=== PATIENT | female | born 1935 | race Caucasian/White ===

== ENCOUNTER → 2016-10-14 | Outpatient (CLI) | payer BC ==
[2016-10-14 11:17] LABS: ESTIMATED AVERAGE GLUCOSE 134 mg/dl; HA1C FLAG Normal (Normal)
[2016-10-14 11:30] LABS: ALT/SGPT 36 U/L (12-78); AST/SGOT 24 U/L (15-37); BLOOD UREA NITROGEN 13 mg/dl (7-18); BUN/CREATININE RATIO 16.4 (10-20); CALCIUM 9.1 mg/dl (8.5-10.1); CARBON DIOXIDE 29 mmol/L (21-32); CHLORIDE 109 mmol/L (98-107); CREATININE 0.77 mg/dl (0.60-1.20); GLUCOSE 121 mg/dl (70-99); POTASSIUM 4.7 mmol/L (3.5-5.1); SODIUM 143 mmol/L (136-145)
[2016-10-14 11:40] LABS: CHOLESTEROL 189 mg/dl (0-200); CHOLESTEROL/HDL RATIO 3.6; HDL CHOLESTEROL 53 mg/dl; LDL CHOLESTEROL CALCULATED 105 mg/dl; TRIGLYCERIDES 154 mg/dl (0-150); VERY LOW DENSITY LIPOPROT CALC 31 mg/dl
== END | disposition home or self-care (01) ==
LOC: C.LABBC 07:40
PROVIDERS: ATTEND Internal Medicine
DX: E03.9 Hypothyroidism, unspecified (principal); E78.00 Pure hypercholesterolemia, unspecified; R73.03 Prediabetes

== ENCOUNTER → 2017-04-23 | Outpatient (CLI) | payer BC ==
[2017-04-23 14:05] LABS: ALT/SGPT 34 U/L (12-78); AST/SGOT 22 U/L (15-37); BLOOD UREA NITROGEN 19 mg/dl (7-18); BUN/CREATININE RATIO 27.1 (10-20); CALCIUM 8.7 mg/dl (8.5-10.1); CARBON DIOXIDE 27 mmol/L (21-32); CHLORIDE 109 mmol/L (98-107); CHOLESTEROL 175 mg/dl (0-200); CREATININE 0.69 mg/dl (0.60-1.20); GLUCOSE 112 mg/dl (70-99); SODIUM 140 mmol/L (136-145)
[2017-04-23 14:16] LABS: CHOLESTEROL/HDL RATIO 2.7; HDL CHOLESTEROL 64 mg/dl; LDL CHOLESTEROL CALCULATED 92 mg/dl; TRIGLYCERIDES 96 mg/dl (0-150); VERY LOW DENSITY LIPOPROT CALC 19 mg/dl
[2017-04-24 06:38] LABS: ESTIMATED AVERAGE GLUCOSE 128 mg/dl; HA1C FLAG Normal (Normal)
== END | disposition home or self-care (01) ==
LOC: C.LABBC 09:31
PROVIDERS: ATTEND Internal Medicine
DX: R73.03 Prediabetes (principal); E03.9 Hypothyroidism, unspecified; E78.00 Pure hypercholesterolemia, unspecified

== ENCOUNTER 2024-09-15 12:21 | Inpatient (IN) ==
--- NOTE | 2024-09-15 12:30 | Emergency Department Note ---
Impression & Plan Left trimalleolar fracture, Short-term memory loss, Ambulatory dysfunction ED Provider Note NAME: ANDREW YEE AGE: 89 SEX: F : 1935 ARRIVES VIA: Ambulance INFORMANT: Patient ED PROVIDER(S): Chase Tirado DO CHIEF COMPLAINT: Fall HPI: Patient is an 89-year-old female with a past medical history of CVA, short- term memory loss, prediabetes who presents to the ER following a fall per report from EMS as described by . Patient fell down from standing. She allegedly did not hit her head. This occurred 2 days ago. She had been cleaning of left ankle and foot pain. She has not been walking on it. No tingling or numbness. She denies any chest pain or shortness of breath. No exertional symptoms. ADDITIONAL HISTORY OBTAINED: notes that he did not see the fall but notes that she kind of fell onto her leg. He also notes that she chronically has issues with memory. Chronic Medical/Social Conditions Affecting Care: Per HPI PAST MEDICAL HISTORY:See Below PAST SURGICAL HISTORY:See Below FAMILY HISTORY:See Below SOCIAL HISTORY:See Below HOME MEDICATIONS:See Below ALLERGIES:See Below VITALS:See Below PHYSICAL EXAMINATION: GENERAL: alert, well appearing, well nourished, no distress, non-toxic HEAD: normal cephalic, atraumatic EYE EXAM: normal conjunctiva, PERRL and EOM's grossly intact OROPHARYNX: no exudate, no erythema, lips, buccal mucosa, and tongue normal and mucous membranes are moist NECK: supple, no nuchal rigidity, no adenopathy, non-tender CHEST: stable to compression anteriorly and posteriorly LUNGS: clear to auscultation. Normal chest wall mechanics HEART: no murmurs, S1 normal and S2 normal ABDOMEN: abdomen soft, non-tender, normo-active bowel sounds, no masses, no rebound or guarding. PELVIS: stable to compression anteriorly and posteriorly BACK: Back is symmetrical on inspection and there is no deformity, no midline tenderness, no CVA tenderness. UPPER EXTREMITIES: full active and passive range of motion of all joints without tenderness to palpation LOWER EXTREMITIES: No tenderness in left femur, knee or proximal tib-fib. Bruising and swelling over the mid to distal tib-fib most prominent over the medial malleolus tracking through the foot. DP and PT 2 out of 4. Swelling of the foot. Sensation intact NEURO EXAM: Awake alert oriented to person and place but not year, cranial nerves II-XII grossly intact, normal speech, no gross weakness of arms, no gross weakness of legs. GCS: 15. MEDICAL DECISION MAKING: Patient is an 89-year-old female who presents to the ER following a fall 2 days ago. She does not remember it. IV was established and blood work was obtained. Labs show no significant leukocytosis or anemia. BMP with a slightly elevated chloride at 109. LFTs and bilirubin was unremarkable. X-rays of the ankle show trimalleolar fracture. Patient has been unable to get out of bed for the past 2 days. She was updated at bedside. Discussed with the who was present at bedside as well. She was discussed with the hospitalist. Did page orthopedics but never heard back. She was admitted to the hospitalist. She was given IV morphine and Zofran as well while in the ER. Consults/Care Managements Discussions: Per [facility] Triage Nursing notes reviewed. Limited review of prior medical records performed Vital Signs: reviewed and remarkable for no significant abnormalities Differential diagnosis: Differential diagnoses include major intracranial, cervical, spinal, thoracic, abdominal, pelvic and neurologic injury. Fracture, contusion, sprain, strain, laceration, abrasions included as well. ER treatment provided: See below Diagnostics interpreted by me include EKG and cardiac monitoring as listed below: -Cardiac Monitoring: An order was placed for continuous cardiac monitoring. The monitor shows a rate of 70 with sinus rhythm. -ECG: Sinus rhythm rate 68 Normal axis No PVCs T wave inversions in the high lateral leads as well as V2 through V6 QTc 489 No old to compare to -Laboratory studies:Interpreted by me as stated above in MDM and shown below. Imaging studies: Xrays: As interpreted by me: X-ray of the left ankle shows a trimalar fracture X-ray of the tib-fib shows fractures in the ankle CTs show: none Procedures:none Critical Care: None Past Med/Surg History Problem List (Updated 09/15/24 @ 17:58 by Chase Tirado DO) Ambulatory dysfunction (Acute) Left trimalleolar fracture (Acute) Late effects of cerebrovascular disease Short-term memory loss (Acute) Pre-diabetes (Acute) Hypercholesterolemia (Acute) Hypothyroidism (Acute) Laryngopharyngeal reflux (Acute) Osteoporosis (Acute) Medical History Central retinal vein occlusion Lupus anticoagulant disorder Vocal cord polyp Surgical History S/P hysterectomy Family History Denies family history of Colon cancer Ovarian cancer Prostate cancer Myocardial infarction Breast cancer Social History Smoking Status: Never smoker Second Hand Exposure: No; Do You Dip or Chew Tobacco: No; Hx Alcohol Use: No Hx Substance Use: No Preferred Language: Cuban Communication Ability: Effective Hearing Ability: Normal Quality Process Lead Required: No marital status: Current Living Situation: Spouse current occupational status: retired How many Children do You have: 1 Feels Safe at Home: Yes Childhood Exposure to Second-Hand Smoke: No Diet: regular caffeine: No during the past year weight has: remained stable Dental Care, Regularly: Yes Physical Activity Frequency: Does not Exercise Seatbelt Use: always Sunscreen Use: Yes Allergies Allergies Allergy/AdvReac Type Severity Reaction Status Date / Time No Known Allergies Allergy Verified 09/15/24 13:55 Home Meds Previous Rx's Medication Instructions Recorded Synthroid 75 mcg tablet 75 mcg PO DAILY #90 tabs 09/09/23 (levothyroxine) clopidogrel 75 mg tablet 75 mg PO DAILY #90 tabs 09/09/23 atorvastatin 20 mg tablet 20 mg PO DAILY #90 tabs 09/05/24 Results & Data (ED) Vital Signs Vital Signs - 24 hr 09/15/24 12:39 09/15/24 12:39 09/15/24 12:45 Temperature 36.6 C Temperature Source Oral Pulse Rate 68 69 Pulse Rhythm Regular Respiratory Rate 20 18 Respiratory Effort / Characteristics Non-Labored Non-Labored Respiratory Depth Normal Normal Blood Pressure 142/62 H Blood Pressure Mean 88 Pulse Oximetry 97 95 Oxygen Delivery Method Room Air Room Air Sepsis Recent Fever Within 48 Hours No Sepsis New/Unexplained Change in Mental Status No Sepsis Action Taken by Nursing No Action Required 09/15/24 13:02 Temperature Temperature Source Pulse Rate 66 Pulse Rhythm Respiratory Rate Respiratory Effort / Characteristics Respiratory Depth Blood Pressure Blood Pressure Mean Pulse Oximetry Oxygen Delivery Method Sepsis Recent Fever Within 48 Hours Sepsis New/Unexplained Change in Mental Status Sepsis Action Taken by Nursing Laboratory Data 09/15/24 12:30 09/15/24 12:30 Lab Results 09/15/24 Range/Units 12:30 WBC 7.54 (4.8-10.8) K/ul RBC 3.97 L (4.20-5.40) M/uL Hgb 12.7 (12.0-16.0) g/dl Hct 36.4 L (37.0-47.0) % MCV 91.7 (80.0-100.0) fL MCH 32.0 (25.0-34.0) pg MCHC 34.9 (32.0-36.0) g/dL RDW Std Deviation 40.4 (36.4-46.3) fL RDW Coeff of [place] 12.0 (11.5-14.5) % Plt Count 190 (130-400) K/uL MPV 9.4 (9.4-12.4) fL Immature Gran % (Auto) 0.1 % Neut % (Auto) 69.3 % Lymph % (Auto) 22.1 % [place] % (Auto) 7.3 % Eos % (Auto) 0.8 % Baso % (Auto) 0.4 % Neut # (Auto) 5.22 (1.40-6.50) K/uL Lymph # (Auto) 1.67 (1.20-3.40) K/uL [place] # (Auto) 0.55 (0.11-0.59) K/uL Eos # (Auto) 0.06 (0.00-0.50) K/uL Baso # (Auto) 0.03 (0.00-0.20) K/uL Immature Gran # (Auto) 0.01 (0.01-0.20) K/uL Sodium 141 (136-145) mmol/L Potassium 4.0 (3.5-5.1) mmol/L Chloride 109 H (98-107) mmol/L Carbon Dioxide 27 (21-32) mmol/L Anion Gap 5 (3-11) BUN 21 (6-23) mg/dl Creatinine 0.71 (0.6-1.2) mg/dl Est Cr Clr Drug Dosing 42.5 ml/min eGFR 81.22 BUN/Creatinine Ratio 29.6 H (10-20) Glucose 140 H (70-99(Fasting)) mg/dl Calcium 8.8 (8.6-10.3) mg/dl Total Bilirubin 1.3 H (0.2-1.0) mg/dl AST 22 (13-39) U/L ALT 12 (7-52) U/L Alkaline Phosphatase 75 (34-104) U/L Total Protein 5.9 L (6.0-8.3) gm/dl Albumin 3.8 (3.4-5.0) gm/dl Globulin 2.1 L (2.5-4.0) gm/dl Albumin/Globulin Ratio 1.8 (0.9-2) Administered Medications Acetaminophen (Ofirmev) 1,000 mg in 100 mls @ 400 mls/hr IV Q8H MARÍA Stop: 09/18/24 16:46 Last Admin: 09/15/24 17:47 Dose: 400 mls/hr Documented By: BS Discontinued Medications Morphine Sulfate (Morphine Sulfate 2 Mg/Ml Carp) 2 mg IV NOW STA Stop: 09/15/24 13:16 Last Admin: 09/15/24 14:37 Dose: 2 mg Documented By: MARQUIS Ondansetron HCl (Ondansetron Inj 2 Mg/Ml 2 Ml Vial) 4 mg IV NOW STA Stop: 09/15/24 13:16 Last Admin: 09/15/24 14:36 Dose: 4 mg Documented By: MARQUIS Imaging Data Radiologist's Impression: Ankle X-Ray 09/15/24 12:23 XR ankle LT min 3V routine CLINICAL HISTORY: Left ankle pain. COMPARISON: None FINDINGS: Left ankle soft tissue swelling is present. There is an acute oblique mildly displaced distal left fibular fracture. Fracture is displaced 4 mm. Fracture extends from the level the tibiotalar joint 3 cm proximally. There is also an acute mildly displaced fracture of the medial malleolus. There is mild medial ankle mortise widening on oblique projection. There is a probable acute mildly displaced posterior distal left tibial fracture. A lucency within the posterior calcaneus is likely artifactual. IMPRESSION: 1. Acute mildly displaced left ankle trimalleolar fracture, as described above. Mild medial ankle mortise widening. 2. Left ankle soft tissue swelling. ACT 112: Negative or not required by law. Electronically signed by: Collin Sweeney M.D. 09/15/2024 1:00 PM Foot X-Ray 09/15/24 12:23 XR foot LT min 3V routine HISTORY: 89 years-old Female l foot pain acute left foot pain COMPARISON: Ankle, tibia and fibula radiographs of same day TECHNIQUE: 3 views of the left foot FINDINGS: Moderate soft tissue swelling of the foot and ankle. Acute trimalleolar ankle fracture with displacement. Demineralized appearance of the bone. No additional acute fracture or dislocation identified. Midfoot alignment appears anatomic. IMPRESSION: 1. Soft tissue swelling of the foot without acute fracture or dislocation. 2. Acute trimalleolar fractures of the ankle are better seen and described on the same day ankle films. ACT 112: Negative or not required by law. The above report was generated using voice recognition software. It may contain grammatical, syntax or spelling errors. Electronically signed by: Gurjit Morley M.D. 09/15/2024 12:50 PM Tibia/Fibula X-Ray 09/15/24 12:23 XR tibia fibula LT 2V CLINICAL HISTORY: Left leg pain. COMPARISON: None FINDINGS: No proximal left tibial or fibular fractures are identified. There is an acute mildly displaced fracture the medial malleolus, distal left fibula and probable additional acute fracture of the posterior distal left tibia. There is left ankle soft tissue swelling. Mild medial ankle mortise widening is present. IMPRESSION: 1. Acute mildly displaced left ankle trimalleolar fracture. Mild medial ankle mortise widening. 2. No proximal left tibial or fibular fracture. ACT 112: Negative or not required by law. Electronically signed by: Collin Sweeney M.D. 09/15/2024 1:02 PM Discharge Plan Visit Data Chief Complaint: Ankle Pain Stated Complaint: FALL ED Provider: Chase Tirado Discharge Problem: Left trimalleolar fracture, Short-term memory loss, Ambulatory dysfunction Patient Disposition: Admitted As Inpatient Condition: Fair Discharge Instructions Interventions: ED Discharge Assessment Last Done: 09/15/24 16:48 Discharge Problem: Left trimalleolar fracture Qualifiers: Encounter type: initial encounter Fracture type: closed Qualified Code(s): S 82.852A - Displaced trimalleolar fracture of left lower leg, initial encounter for closed fracture
[2024-09-15 12:48] LABS: Basophils # (auto) 0.03 K/uL (0.00-0.20); Basophils % (auto) 0.4 %; Eosinophils # (auto) 0.06 K/uL (0.00-0.50); Eosinophils % (auto) 0.8 %; Hematocrit (blood only) 36.4 % (37.0-47.0); Hemoglobin 12.7 g/dl (12.0-16.0); Immature Granulocytes # (auto) 0.01 K/uL (0.01-0.20); Immature Granulocytes % (auto) 0.1 %; Lymphocytes # (auto) 1.67 K/uL (1.20-3.40); Lymphocytes % (auto) 22.1 %; Mean Corpuscular Hgb Conc 34.9 g/dL (32.0-36.0); Mean Corpuscular Volume 91.7 fL (80.0-100.0); Mean Platelet Volume 9.4 fL (9.4-12.4); Monocytes # (auto) 0.55 K/uL (0.11-0.59); Monocytes % (auto) 7.3 %; Neutrophils # (auto) 5.22 K/uL (1.40-6.50); Neutrophils % (auto) 69.3 %; Platelet Count 190 K/uL (130-400); RDW Standard Deviation 40.4 fL (36.4-46.3); Red Blood Count 3.97 M/uL (4.20-5.40); White Blood Count 7.54 K/ul (4.8-10.8)
--- NOTE | 2024-09-15 12:52 | XRay Report ---
XR foot LT min 3V routine HISTORY: 89 years-old Female l foot pain acute left foot pain COMPARISON: Ankle, tibia and fibula radiographs of same day TECHNIQUE: 3 views of the left foot FINDINGS: Moderate soft tissue swelling of the foot and ankle. Acute trimalleolar ankle fracture with displacem ent. Demineralized appearance of the bone. No additional acute fracture or dislocation identified. Mi dfoot alignment appears anatomic. IMPRESSION: 1. Soft tissue swelling of the foot without acute fracture or dislocation. 2. Acute trimalleolar fractures of the ankle are better seen and described on the same day ankle film s. ACT 112: Negative or not required by law. The above report was generated using voice recognition software. It may contain grammatical, syntax o r spelling errors. Electronically signed by: Gurjit Morley M.D. 09/15/2024 12:50 PM
--- NOTE | 2024-09-15 13:02 | XRay Report ---
XR ankle LT min 3V routine CLINICAL HISTORY: Left ankle pain. COMPARISON: None FINDINGS: Left ankle soft tissue swelling is present. There is an acute oblique mildly displaced dis jung left fibular fracture. Fracture is displaced 4 mm. Fracture extends from the level the tibiotalar joint 3 cm proximally. There is also an acute mildly displaced fracture of the medial malleolus. The re is mild medial ankle mortise widening on oblique projection. There is a probable acute mildly disp laced posterior distal left tibial fracture. A lucency within the posterior calcaneus is likely artif actual. IMPRESSION: 1. Acute mildly displaced left ankle trimalleolar fracture, as described above. Mild medial ankle mor tise widening. 2. Left ankle soft tissue swelling. ACT 112: Negative or not required by law. Electronically signed by: Collin Sweeney M.D. 09/15/2024 1:00 PM
--- NOTE | 2024-09-15 13:04 | XRay Report ---
XR tibia fibula LT 2V CLINICAL HISTORY: Left leg pain. COMPARISON: None FINDINGS: No proximal left tibial or fibular fractures are identified. There is an acute mildly disp laced fracture the medial malleolus, distal left fibula and probable additional acute fracture of the posterior distal left tibia. There is left ankle soft tissue swelling. Mild medial ankle mortise wid ening is present. IMPRESSION: 1. Acute mildly displaced left ankle trimalleolar fracture. Mild medial ankle mortise widening. 2. No proximal left tibial or fibular fracture. ACT 112: Negative or not required by law. Electronically signed by: Collin Sweeney M.D. 09/15/2024 1:02 PM
[2024-09-15 13:05] LABS: Albumin Globulin Ratio 1.8 (0.9-2); Albumin Level 3.8 gm/dl (3.4-5.0); BUN Creatinine Ratio 29.6 (10-20); Bilirubin,Total 1.3 mg/dl (0.2-1.0); Calcium 8.8 mg/dl (8.6-10.3); Creatinine Clr Calc Pharmacy 42.5 ml/min; Globulin 2.1 gm/dl (2.5-4.0); Total Protein 5.9 gm/dl (6.0-8.3)
--- NOTE | 2024-09-15 14:10 | History & Physical Report ---
Date of Service September 15, 2024 Assessment & Plan (1) Left trimalleolar fracture: (2) Osteoporosis: (3) Hypothyroidism: (4) Pre-diabetes: (5) Hypercholesterolemia: (6) Laryngopharyngeal reflux: (7) Short-term memory loss: Plan 89-year-old female with past medical history of hypothyroidism, hypercholesterolemia, osteoporosis, prediabetes, prior CVA (on Plavix), GERD, vitamin D deficiency, and short-term memory loss. She presented to the ED via EMS with left ankle pain after experiencing a fall at home 2 days prior to presenting to the ED. She denied head strike or loss of consciousness during this fall. She has had ongoing left foot/ankle pain since the fall and has not been able to ambulate due to pain with weightbearing. Imaging on admission revealed acute mildly displaced left ankle trimalleolar fracture - fracture the medial malleolus, distal left fibula and probable additional acute fracture of the posterior distal left tibia. There is left ankle soft tissue swelling. Mild medial ankle mortise widening is present. No proximal left tibial or fibular fracture noted. #Acute left trimalleolar ankle fracture/osteoporosis/vitamin D deficiency Apply Orthoglass splint to LLE Orthopedic surgery consulted, appreciate evaluation and recommendations Pain regimen with scheduled Tylenol 1000 mg IV Q8H, oxycodone 5 mg Q4H PRN moderate pain, morphine 2 mg IV Q4H PRN severe pain Continue vitamin D supplementation. Vitamin D level added to a.m. labs PT/OT consulted - will make non-weightbearing status for LLE until seen by ortho Maintain n.p.o. status with pending orthopedic surgery evaluation. If no surgical intervention is planned for today 09/15/2024, can start regular diet. If surgical interventions planned for 09/16, make n.p.o. at midnight #Hypothyroidism Most recent TSH 2.5 in February 2024 Continue Synthroid 75 mcg daily #Prediabetes Most recent A1c 6.1% in February 2024 Will repeat A1c with morning labs #Hypercholesterolemia Continue atorvastatin 20 mg daily #GERD Protonix 40 mg daily while hospitalized Maalox available as needed #Short-term memory loss from prior CVA. Mentation at baseline per Plavix, Aspirin on hold with pending surgical intervention VTE PPx: SCDs. Chemoprophylaxis contraindicated with possible surgical intervention CODE STATUS: DNR/DNI History of Present Illness Chief Complaint: Left ankle pain Primary Care Provider: Edgar Rodriguez MD Demetra is a pleasant 89-year-old female with past medical history of hypothyroidism, hypercholesterolemia, osteoporosis, prediabetes, prior CVA (on Plavix and baby Aspirin), GERD, vitamin D deficiency, and short-term memory loss. She presented to the ED via EMS with left ankle pain after experiencing a fall at home 2 days prior to presenting to the ED. She denied head strike or loss of consciousness during this fall. She has had ongoing left foot/ankle pain since the fall and has not been able to ambulate due to pain with weightbearing. She denies any paresthesias in her right lower extremity. Her pain is well-controlled at this time after receiving 2 mg IV morphine in the ED. Vital signs on admission notes slightly elevated BP at 142/62, otherwise within normal limits and stable. Labs on admission overall unremarkable with stable WBC, hemoglobin, platelets, electrolytes. Serum glucose elevated at 140, T. bili slightly elevated at 1.3. Imaging on admission revealed acute mildly displaced left ankle trimalleolar fracture - fracture the medial malleolus, distal left fibula and probable additional acute fracture of the posterior distal left tibia. There is left ankle soft tissue swelling. Mild medial ankle mortise widening is present. No proximal left tibial or fibular fracture noted. She did not take any medications on day of admission. does report she takes aspirin 81 mg daily (not included on med list). No recent medication changes. at bedside to provide additional history as patient has some short-term memory loss at baseline. Discussed CODE STATUS with patient and , patient wishes to be DNR/DNI. Allergies Allergy/AdvReac Type Severity Reaction Status Date / Time No Known Allergies Allergy Verified 09/15/24 13:55 Home Medications Medication Instructions Recorded Confirmed Type Synthroid 75 mcg tablet 75 mcg PO DAILY #90 tabs 09/09/23 09/15/24 Rx (levothyroxine) clopidogrel 75 mg tablet 75 mg PO DAILY #90 tabs 09/09/23 09/15/24 Rx atorvastatin 20 mg tablet 20 mg PO DAILY #90 tabs 09/05/24 09/15/24 Rx Past Med/Surg History Problem List (Updated 09/15/24 @ 17:58 by Chase M Tirado, DO) Ambulatory dysfunction (Acute) Left trimalleolar fracture (Acute) Late effects of cerebrovascular disease Short-term memory loss (Acute) Pre-diabetes (Acute) Hypercholesterolemia (Acute) Hypothyroidism (Acute) Laryngopharyngeal reflux (Acute) Osteoporosis (Acute) Medical History Central retinal vein occlusion Lupus anticoagulant disorder Vocal cord polyp Surgical History S/P hysterectomy Family History Denies family history of Colon cancer Ovarian cancer Prostate cancer Myocardial infarction Breast cancer Social History Smoking Status: Never smoker Second Hand Exposure: No; Do You Dip or Chew Tobacco: No; Hx Alcohol Use: No Hx Substance Use: No Preferred Language: Belarusian Communication Ability: Effective Hearing Ability: Normal 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 HEENT: Normocephalic, atraumatic. PERRL, conjunctivae clear, sclera non-icte shikha. External ear and ear canal without swelling; nose atraumatic; good dentition, tongue normal appearance, pharynx normal. Neck supple, no LAD. Cardiac: Regular rate and rhythm without murmurs gallops or rubs. Pulm: Clear to auscultation bilaterally without wheezes, rales or rhonchi. Normal respiratory effort. 97% on room air. Abdominal: Positive bowel sounds x 4. Soft, nontender, without masses or organomegaly. No guarding or rebound tenderness. Neuro: A&O x3 (person, place, event - not time/month). Periods of short term memory loss. Baseline mentation per . No focal neurological deficits. Left lower extremity: Ecchymosis extending from middistal tib-fib through midfoot. Soft tissue swelling noted in ankle and foot. Tenderness over medial malleolus. Dorsalis pedis 2/4. Sensation intact to light touch. ROM limited by pain. Results & Data Results & Data Vital Signs (Past 12 Hours) Vital Signs Temp Pulse Resp BP Pulse Ox O2 Del Method 09/15/24 13:02 66 09/15/24 12:39 69 18 95 Room Air 09/15/24 12:39 97.9 F 68 20 142/62 H 97 Room Air Laboratory Results Reviewed CBC Reviewed CMP Diagnostic Findings Reviewed left ankle x-ray Reviewed left foot x-ray Reviewed left tibia/fibula x-ray Ankle X-Ray 09/15/24 12:23 XR ankle LT min 3V routine CLINICAL HISTORY: Left ankle pain. COMPARISON: None FINDINGS: Left ankle soft tissue swelling is present. There is an acute oblique mildly displaced distal left fibular fracture. Fracture is displaced 4 mm. Fracture extends from the level the tibiotalar joint 3 cm proximally. There is also an acute mildly displaced fracture of the medial malleolus. There is mild medial ankle mortise widening on oblique projection. There is a probable acute mildly displaced posterior distal left tibial fracture. A lucency within the posterior calcaneus is likely artifactual. IMPRESSION: 1. Acute mildly displaced left ankle trimalleolar fracture, as described above. Mild medial ankle mortise widening. 2. Left ankle soft tissue swelling. ACT 112: Negative or not required by law. Electronically signed by: Collin Sweeney M.D. 09/15/2024 1:00 PM Foot X-Ray 09/15/24 12:23 XR foot LT min 3V routine HISTORY: 89 years-old Female l foot pain acute left foot pain COMPARISON: Ankle, tibia and fibula radiographs of same day TECHNIQUE: 3 views of the left foot FINDINGS: Moderate soft tissue swelling of the foot and ankle. Acute trimalleolar ankle fracture with displacement. Demineralized appearance of the bone. No additional acute fracture or dislocation identified. Midfoot alignment appears anatomic. IMPRESSION: 1. Soft tissue swelling of the foot without acute fracture or dislocation. 2. Acute trimalleolar fractures of the ankle are better seen and described on the same day ankle films. ACT 112: Negative or not required by law. The above report was generated using voice recognition software. It may contain grammatical, syntax or spelling errors. Electronically signed by: Gurjit Morley M.D. 09/15/2024 12:50 PM Tibia/Fibula X-Ray 09/15/24 12:23 XR tibia fibula LT 2V CLINICAL HISTORY: Left leg pain. COMPARISON: None FINDINGS: No proximal left tibial or fibular fractures are identified. There is an acute mildly displaced fracture the medial malleolus, distal left fibula and probable additional acute fracture of the posterior distal left tibia. There is left ankle soft tissue swelling. Mild medial ankle mortise widening is present. IMPRESSION: 1. Acute mildly displaced left ankle trimalleolar fracture. Mild medial ankle mortise widening. 2. No proximal left tibial or fibular fracture. ACT 112: Negative or not required by law. Electronically signed by: Collin Sweeney M.D. 09/15/2024 1:02 PM Supervising Physician Co-Signing Physician Notes I have reviewed vital signs, chart notes, labs and imaging. I have personally seen, evaluated and examined the patient. I have also discussed the management of the patient with the EDELMIRA and I agree with the exam findings documented in the history and physical examination and the documented assessment and plan unless otherwise stated below. Adamaris had a mechanical fall sustained left ankle trimalleolar fracture. She is forgetful currently probably because of morphine given earlier and underlying cognitive impairment. She denies any history of cardiac disease including chest pain, angina, dyspnea on exertion. She is unable to tell me much about her previous stroke. Her is not currently present physical exam is fairly unremarkable, she is forgetful and a limited historian. Heart is regular no murmurs, no JVD, abdomen soft nontender nondistended, left lower extremity is in a splint and Matt wrap toes are warm and well-perfused. There is no edema of the right lower extremity which is also warm she is tentatively planned for repair of ankle fracture tomorrow by Dr. Shaikh I reviewed her EKG from the ED and it is concerningnormal sinus rhythm, possible LVH, diffuse ST abnormalities concerning for ischemia. This includes ST depression and inverted T wave in lead I, mild ST elevation in leads III, V1, V2 They do not meet criteria for STEMI. T wave inversions also in V2 and V4V6. there is no prior EKG for comparison, including in MUSE It is possible that these changes are chronic and/or repolarization abnormality related to LVH, however it is also possible that they are new or related to underlying coronary artery disease. she is asymptomatic at this time and she has been on DAPT and statin. I ordered HS-troponin with reflex, BNP, TTE I updated Dr. Shaikh that she will need further preop evaluation. PG Care Time/CCT Total # of Minutes Spent Total Time Spent with Patient: Total time spent is greater than 50% in coordination of care (as documented) at patient's floor/unit and/or counseling patient: Coding Level of Care Code 68375 INT INP/OBS CARE 2MIN Diagnoses Left trimalleolar fracture S82.852A Osteoporosis M81.0 Hypothyroidism E03.9 Pre-diabetes R73.03 Hypercholesterolemia E78.00 Laryngopharyngeal reflux K21.9 Short-term memory loss R41.3
[2024-09-15] MEDS: ONDANSETRON INJ 2 MG/ML 2 ML VIAL IV STA (14:36)
[2024-09-15] MEDS: MoRPHine SULFATE 2 MG/ML CARP IV STA (14:37)
--- NOTE | 2024-09-15 15:32 | Orthopedic Consultation ---
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 Plan: We discussed treatment option with the patient and her . Certainly this some that would benefit from surgical management to stabilize her ankle. Organ to proceed with open reduction internal fixation when she is medically optimized. The risks met this of this procedure were explained in depth. The family understands and desires to proceed. Informed consent was obtained. I did not get a chance to look at her skin and we will look at that when we take her splint off in the operating room. I assume it will be adequate to operate through. Will plan on DVT prophylaxis including teds, SCDs, aspirin. We have her eat today and keep her n.p.o. after midnight. (2) Late effects of cerebrovascular disease: (3) Pre-diabetes: (4) Hypercholesterolemia: (5) Hypothyroidism: (6) Osteoporosis: History of Present Illness Reason for Consultation: . Left ankle fracture. . . 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 That she stained a fall. Since the fall, she has been unable to weight-bear or walk on her left ankle. She is brought to emergency room by her today and x-rays rule out fracture of the left ankle involving the medial, posterior malleolus and the lateral malleolus. She was put in a splint. We are consulted for evaluation. Patient denies any other injuries. No head injury no loss conscious. No neck pain. No other complaints. No chest pain or shortness of breath. Allergies Allergy/AdvReac Type Severity Reaction Status Date / Time No Known Allergies Allergy Verified 09/15/24 13:55 Home Medications Medication Instructions Recorded Confirmed Type Synthroid 75 mcg tablet 75 mcg PO DAILY #90 tabs 09/09/23 09/15/24 Rx (levothyroxine) clopidogrel 75 mg tablet 75 mg PO DAILY #90 tabs 09/09/23 09/15/24 Rx atorvastatin 20 mg tablet 20 mg PO DAILY #90 tabs 09/05/24 09/15/24 Rx Past Med/Surg History Problem List Left trimalleolar fracture Late effects of cerebrovascular disease Short-term memory loss Pre-diabetes (Acute) Hypercholesterolemia (Acute) Hypothyroidism (Acute) Laryngopharyngeal reflux (Acute) Osteoporosis (Acute) Medical History Central retinal vein occlusion Lupus anticoagulant disorder Vocal cord polyp Surgical History S/P hysterectomy Family History Denies family history of Colon cancer Ovarian cancer Prostate cancer Myocardial infarction Breast cancer Social History Smoking Status: Never smoker Second Hand Exposure: No; Do You Dip or Chew Tobacco: No; Hx Alcohol Use: No Hx Substance Use: No Preferred Language: Montenegrin Communication Ability: Effective Hearing Ability: Normal Animation Director Required: No marital status: Current Living Situation: Spouse current occupational status: retired How many Children do You have: 1 Feels Safe at Home: Yes Childhood Exposure to Second-Hand Smoke: No Diet: regular caffeine: No during the past year weight has: remained stable Dental Care, Regularly: Yes Physical Activity Frequency: Does not Exercise Seatbelt Use: always Sunscreen Use: Yes Review of Systems All systems reviewed & are unremarkable except as noted in HPI & below. Physical Exam . Physical examination was a pleasant elderly female. She is lying on the exam gurney and looks comfortable. Examination of left leg and ankle reveals a splint to be in place. Ankle looks well aligned. She can dorsiflex and plantarflex her toes appropriately. She is neurologically intact. I could not examine her skin in the splint. Results & Data Results & Data Laboratory Results . Diagnostic Findings . X-ray of the ankle reviewed. X-rays show a left trimalar ankle fracture. She is got some fragmentation of the medial malleolus, very small posterior malleolus fracture and a Plunkett B fibula fracture. There are some slight displacement of the mortise. Diffuse osteopenia. PG Care Time/CCT Total # of Minutes Spent Total Time Spent with Patient: Total time spent is greater than 50% in coordination of care (as documented) at patient's floor/unit and/or counseling patient: Coding Level of Care Code 99741 IN/OBS CONSULT LVL 4,60M Diagnoses Left trimalleolar fracture S82.852A Late effects of cerebrovascular disease I69.90 Pre-diabetes R73.03 Hypercholesterolemia E78.00 Hypothyroidism E03.9 Osteoporosis M81.0
[2024-09-15] MEDS ORDERED: oxyCODONE HCL IR 5 MG TAB (IMMEDIATE RELEASE) PO PRN (16:47)
[2024-09-15] MEDS ORDERED: MoRPHine SULFATE 2 MG/ML CARP IV PRN (16:47)
[2024-09-15] MEDS ORDERED: POLYETHYLENE (MIRALAX) 17 GM PACK PO PRN (16:47)
[2024-09-15] MEDS ORDERED: ALUMINUM/MAGNESIUM SUSP 30 ML UDC PO PRN (16:47)
[2024-09-15] MEDS ORDERED: ONDANSETRON INJ 2 MG/ML 2 ML VIAL IV PRN (16:47)
[2024-09-15] MEDS ORDERED: MELATONIN 3 MG TAB PO PRN (16:47)
[2024-09-15] MEDS: ACETAMINOPHEN 1,000 MG/100 ML VIAL IV SCH (17:47)
--- NOTE | 2024-09-15 20:16 | Billing Data ---
Date of Service September 15, 2024 Coding Level of Care Code 93582 INT INP/OBS CARE
--- NOTE | 2024-09-15 23:12 | Electrocardiogram Report ---
Test Reason : Blood Pressure : */* mmHG Vent. Rate : 68 BPM Atrial Rate : 68 BPM P-R Int : 144 ms QRS Dur : 68 ms QT Int : 460 ms P-R-T Axes : 47 2 146 degrees QTcB Int : 489 ms Normal sinus rhythm Minimal voltage criteria for LVH, may be normal variant ( R in aVL Marked ST abnormality, possible lateral subendocardial injury vs repolarization abnormality. Abnormal ECG No previous ECGs available Confirmed by Tom Mortensen ([id number]) on 09/15/2024 11:12:25 PM Referred By: Confirmed By: Tom Mortensen
[2024-09-16] MEDS: LEVOTHYROXINE SODIUM 75 MCG TABLET PO SCH (06:03)
[2024-09-16 06:32] LABS: Basophils # (auto) 0.03 K/uL (0.00-0.20); Basophils % (auto) 0.5 %; Eosinophils % (auto) 3.1 %; Hematocrit (blood only) 34.2 % (37.0-47.0); Hemoglobin 11.6 g/dl (12.0-16.0); Immature Granulocytes # (auto) 0.03 K/uL (0.01-0.20); Immature Granulocytes % (auto) 0.5 %; Lymphocytes # (auto) 1.29 K/uL (1.20-3.40); Lymphocytes % (auto) 19.7 %; Mean Corpuscular Hemoglobin 31.6 pg (25.0-34.0); Mean Corpuscular Hgb Conc 33.9 g/dL (32.0-36.0); Mean Corpuscular Volume 93.2 fL (80.0-100.0); Mean Platelet Volume 9.6 fL (9.4-12.4); Monocytes # (auto) 0.52 K/uL (0.11-0.59); Neutrophils # (auto) 4.47 K/uL (1.40-6.50); Neutrophils % (auto) 68.2 %; Platelet Count 179 K/uL (130-400); RDW Standard Deviation 41.1 fL (36.4-46.3); Red Blood Count 3.67 M/uL (4.20-5.40); White Blood Count 6.54 K/ul (4.8-10.8)
[2024-09-16 07:01] LABS: Albumin Globulin Ratio 1.6 (0.9-2); Albumin Level 3.4 gm/dl (3.4-5.0); BUN Creatinine Ratio 29.9 (10-20); Calcium 8.3 mg/dl (8.6-10.3); Creatinine Clr Calc Pharmacy 31.1 ml/min; Globulin 2.1 gm/dl (2.5-4.0); Potassium 3.9 mmol/L (3.5-5.1); Total Protein 5.5 gm/dl (6.0-8.3)
--- NOTE | 2024-09-16 07:03 | History & Physical Bridge Note ---
Date of Service September 16, 2024 History & Physical Bridge Note I have examined the patient, reviewed the History & Physical and in the interval since the performance of the History & Physical I have noted the following changes of clinical significance: no changes noted
--- NOTE | 2024-09-16 07:04 | Orthopedic Progress Note ---
Date of Service September 16, 2024 Assessment & Plan (1) Left trimalleolar fracture: Plan: 89-year-old female admitted with a left ankle fracture. Plan is for internal fixation today. Medicines as recommended an echo preoperatively and that is pending. Assuming that looks okay we will proceed with surgical intervention. Admission and Anticipated Discharge Date Admission Date: September 15, 2024 Subjective 89-year-old female admitted with a left ankle fracture. There is been no interval change in her situation. Isolated ankle pain. Denies any chest pain or shortness of breath. Physical Exam Physical Exam: Physical nation is a pleasant elderly female. She is lying in bed this morning looks pretty comfortable. Examination left ankle reveals the splint to be in place. Left ankle looks well aligned. She is neurologically intact. Results & Data Vital Signs (Past 12 Hours) Vital Signs Temp Pulse Pulse Resp BP BP Pulse Ox 09/15/24 20:23 36.5 C 68 20 112/63 95 09/15/24 19:33 70 24 102/54 L 92 O2 Del Method 09/15/24 20:23 Room Air 09/15/24 19:33 (1) Left trimalleolar fracture Encounter type: initial encounter Fracture type: closed Qualified Code(s): S82.852A - Displaced trimalleolar fracture of left lower leg, initial encounter for closed fracture
[2024-09-16 07:07] LABS: Troponin I High Sensitivity 16.7 pg/ml (0-14)
--- NOTE | 2024-09-16 08:07 | Communication Note ---
Date of Service: September 16, 2024 EKG abnormal LVH vs ischemia Minimal Tn elevation 17-->16, BNP 280 TTE pending - reached out to tech NPO for now in case she can go to OR later today
[2024-09-16 08:29] LABS: Estimated Average Glucose 128 mg/dl; Hemoglobin A1C 6.1 % (4.5-5.6)
--- NOTE | 2024-09-16 09:39 | Hospitalist Progress Note ---
Date of Service September 16, 2024 Assessment & Plan (1) Left trimalleolar fracture: (2) Osteoporosis: (3) Hypothyroidism: (4) Pre-diabetes: Plan 89-year-old female with past medical history of hypothyroidism, hypercholesterolemia, osteoporosis, prediabetes, prior CVA (on Plavix), GERD, vitamin D deficiency, and short-term memory loss. She presented to the ED via EMS with left ankle pain after experiencing a fall at home 2 days prior to presenting to the ED. She denied head strike or loss of consciousness during this fall. She has had ongoing left foot/ankle pain since the fall and has not been able to ambulate due to pain with weightbearing. Imaging on admission revealed acute mildly displaced left ankle trimalleolar fracture - fracture the medial malleolus, distal left fibula and probable additional acute fracture of the posterior distal left tibia. There is left ankle soft tissue swelling. Mild medial ankle mortise widening is present. No proximal left tibial or fibular fracture noted. #Acute left trimalleolar ankle fracture/osteoporosis/vitamin D deficiency Orthopedic surgery consulted - discussed with Dr. Shaikh, planning surgery today Pain regimen with scheduled Tylenol 1000 mg IV Q8H, oxycodone 5 mg Q4H PRN moderate pain, morphine 2 mg IV Q4H PRN severe pain Continue vitamin D supplementation. Vitamin D level pending Abnormal EKG - LVH pattern cannot rule out ischemia. Minimally elevated HS- troponin with flat/down trend. BNP in 200s. Obtained TTE - discussed with branch lending officer - reassuring - LVH, normal EF, some AI. So EKG changes can be explained by LVH. No cardiac history, no angina/chest pain, no evidence of heart failure based on exam, symptoms echo. Standard cardiovascular risk to proceed with urgent surgery as planned. She does have dementia so will be at elevated risk of delirium - will need to be cautious with opioids and sedating meds. #Hypothyroidism Most recent TSH 2.5 in February 2024 Continue Synthroid 75 mcg daily #Prediabetes A1c 6.1% Monitor diet/BG postop #Hypercholesterolemia Continue atorvastatin 20 mg daily #GERD Protonix 40 mg daily while hospitalized Maalox available as needed #Remote CVA Plavix, Aspirin on hold until ok per surgeon postop #Dementia - longstanding pattern of short term memory loss. At baseline per her on admission. Delirium precautions, avoid sedating meds as much as possible VTE PPx: SCDs until postop per ortho CODE STATUS: DNR/DNI Admission and Anticipated Discharge Date Admission Date: September 15, 2024 Subjective No leg or ankle pain. No chest pain or shortness of breath. Confused/forgetful Physical Exam 2 Physical Exam: Last 24h vitals reviewed GEN: no acute distress, lying in bed HEENT: pupils equal, sclerae anicteric, moist MM RESP: normal WOB, CTAB CV: reg no mrg ABD: soft/nt/nd +BT : no neumann SKIN: warm and dry, no generalized rashes EXT: LLE in splint, toes wwp NEURO: AOx self. Doesn't understand why she's here and asks to go home today. Face symmetric, speech normal, moves 4 ext spontaneously and equally Results & Data Results & Data Vital Signs (Past 12 Hours) Vital Signs Temp Pulse Resp BP Pulse Ox O2 Del Method 09/16/24 08:10 36.8 C 70 16 147/73 H 94 Room Air Laboratory Results 09/16/24 05:40 09/16/24 05:40 PG Care Time/CCT Total # of Minutes Spent Total Time Spent with Patient: Total time spent is greater than 50% in coordination of care (as documented) at patient's floor/unit and/or counseling patient: Coding Level of Care Code 14616 SUB INP/OBS CARE 3/50MIN Diagnoses Left trimalleolar fracture S82.852A Encounter type: initial encounter Fracture type: closed Osteoporosis M81.0 Hypothyroidism E03.9 Pre-diabetes R73.03 (1) Left trimalleolar fracture Encounter type: initial encounter Fracture type: closed Qualified Code(s): S 82.852A - Displaced trimalleolar fracture of left lower leg, initial encounter for closed fracture
--- NOTE | 2024-09-16 10:28 | Anesthesiology Consultation ---
Date of Service September 16, 2024 Assessment & Plan Chart Review Chart Review: Acceptable Risk for Surgery Consults Requested none History Surgery Operation Date: 09/16/24 07:30 Proposed Procedures p Left Ankle Open Reduction Internal Fixation - Keon Shaikh MD Height/Weight Height: 5 ft 2 in Weight: 54.8 kg Allergies Allergy/AdvReac Type Severity Reaction Status Date / Time No Known Allergies Allergy Verified 09/15/24 13:55 Medications Home Medications Medication Instructions Recorded Confirmed Last Taken Synthroid 75 mcg tablet 75 mcg PO DAILY #90 tabs 09/09/23 09/15/24 09/14/24 (levothyroxine) clopidogrel 75 mg tablet 75 mg PO DAILY #90 tabs 09/09/23 09/15/24 09/14/24 atorvastatin 20 mg tablet 20 mg PO DAILY #90 tabs 09/05/24 09/15/24 09/14/24 Active Medications Generic Name Dose Route Start Last Admin Trade Name Freq PRN Reason Stop Dose Admin Acetaminophen 1,000 mg in 100 mls @ 400 mls/hr 09/15/24 16:47 09/16/24 09:02 Ofirmev IV 09/18/24 16:46 Not Given Q8H MARÍA Levothyroxine Sodium 75 mcg 09/16/24 06:30 09/16/24 06:03 Levothyroxine Sodium 75 Mcg Tablet PO 10/16/24 06:29 75 mcg DAILYBB MARÍA Administration NPO Date Last Intake of Fluids: 09/15/24 Time Last Intake of Fluids: 19:30 Date Last Intake of Solids: 09/15/24 Time Last Intake of Solids: 19:30 Past Medical History Medical History Central retinal vein occlusion Lupus anticoagulant disorder Vocal cord polyp Past Family History Family History Denies family history of Colon cancer Ovarian cancer Prostate cancer Myocardial infarction Breast cancer Past Surgical History Surgical History S/P hysterectomy Social History Smoking Status: Never smoker Do You Dip or Chew Tobacco: No Hx Alcohol Use: No Hx Substance Use: No Physical Exam Vital Signs Last Vital Signs Temp 36.8 C 09/16/24 08:10 Pulse 70 09/16/24 08:10 Resp 16 09/16/24 08:10 BP 147/73 H 09/16/24 08:10 Pulse Ox 94 09/16/24 08:10 O2 Del Method Room Air 09/16/24 08:10 Testing Laboratory Results 09/16/24 05:40 09/16/24 05:40 Hemoglobin A1c 6.1 % (4.5-5.6) H 09/16/24 05:40
[2024-09-16] MEDS ORDERED: HYDROmorphone INJ 2 MG/ML SYR/VIAL IV PRN (10:29)
[2024-09-16] MEDS ORDERED: PROMETHAZINE HCL 6.25 MG in SODIUM CHLORIDE 0.9% 50 ML IV PRN (10:29)
[2024-09-16] MEDS ORDERED: ATROPINE SULFATE 0.1 MG/ML 10ML SYR IV PRN (10:29)
[2024-09-16] MEDS ORDERED: fentaNYL citrate PF 100 MCG/2 ML VIAL IV PRN (10:29)
[2024-09-16] MEDS ORDERED: ONDANSETRON INJ 2 MG/ML 2 ML VIAL IV PRN ×2 (10:29→14:20)
[2024-09-16] MEDS ORDERED: ePHEDrine sulfate 50 MG/ML AMP IV PRN (10:29)
[2024-09-16] MEDS ORDERED: ROCURONIUM BROMIDE 10 MG/ML 5 ML VIAL IV ONE (11:37)
[2024-09-16] MEDS ORDERED: LIDOCAINE 2% 2 ML VIAL/AMP(20MG/ML) INFIL ONE (11:37)
[2024-09-16] MEDS ORDERED: fentaNYL citrate PF 100 MCG/2 ML VIAL ONE (11:37)
[2024-09-16] MEDS ORDERED: ceFAZolin 330 MG/ML 1 GM VIAL ONE (11:37)
[2024-09-16] MEDS ORDERED: PROPOFOL IV EMULSION 10 MG/ML 20 ML VIAL IV ONE (11:37)
[2024-09-16] MEDS ORDERED: PHENYLEPHRINE 100MCG/ML 5ML SYR ONE (12:44)
[2024-09-16] MEDS ORDERED: SUGAMMADEX SODIUM 200 MG/2 ML VIAL IV ONE (13:01)
[2024-09-16] MEDS ORDERED: ONDANSETRON INJ 2 MG/ML 2 ML VIAL ONE (13:02)
[2024-09-16] MEDS: BUPIVACAINE/EPINEPHRINE 0.5% MPF 1:200,000 30 ML VIAL ONE (13:02)
--- NOTE | 2024-09-16 13:43 | Operative Report ---
PG Post Operative Report Pre & Post Diagnosis Operation Date: 09/16/24 07:30 Pre-Op Diagnosis: Left trimalleolar fracture Post-Op Diagnosis: Left trimalleolar fracture I identified the patient and participated in the time-out.: Yes Procedure Operation Date: 09/16/24 07:30 Actual Procedures p Left Ankle Open Reduction Internal Fixation(Left) - Keon Shaikh MD Surgeon Keon Shaikh MD Hand Edge Bander Sonny Moreland PA-C Estimated Blood Loss 20 Findings Consistent with Post-Op Diagnosis Specimens None Anesthesia Type General Complications none Disposition Accompanied Patient To Recovery: No Indications 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 She has been unable to walk on her ankle since. She brought the emergency room her last evening that revealed a displaced trimalar ankle fracture. She was admitted by the hospitalist service, medically optimized and indicated for surgical treatment. Description of Procedure Operative implants consists of: Medial side implants consists of: 1. 3.5 partially-threaded cannulated screw x 2 both of 46 mm in length and both with washers. Lateral side implants consisted of: 1. Synthes one third semitubular stainless steel locking plate with 8 holes. 2. 3.5 fully threaded cortical screws x 4. 3. 4.0 partially-threaded cancellous screw x 1. 4. 4.0 fully threaded cancellous screw x 1. 5. 3.5 cortical locking screw x 1. The patient was taken the op room, identified, placed on the operating table in the supine position. All conductors were appropriately padded. IV antibiotics arrived by anesthesia team. A general anesthetic was implemented as this patient is on Plavix. A left thigh tent was then placed. The left lower extremity splint was then removed. I scrubbed her foot and ankle with Hibiclens and then prepped it with ChloraPrep and usual sterile fashion. The left leg was elevated exsanguinated with use of an Esmarch and a turn was placed at 300 mmHg. Attention was first drawn to the medial side. A curvilinear incision was made over the medial malleolus. Sharp dissection was Through subcutaneous tissue directly down the fracture site. The fracture site was identified. It was cleaned of all soft tissues. There was some slight comminution. I then reduced the fracture and held it with a reduction clamp and placed 2 wires across the fracture site. This was verified fluoroscopically and then 2 partially-threaded cancellous screws were then placed over the guidewires after drilling with the drill. These were both placed with washers to try and maximize fixation and compression. Despite excellent fixation medially. Attention drawn laterally. A direct lateral approach to the fibula was then performed through a longitudinal incision over the posterior lateral border. Sharp dissection was Through subcutaneous tissue down to the level of the bone. I exposed the fibula. We reduced this anatomically and held with a reduction clamp. I placed a single 4.0 partially-threaded cancellous screw in a lag fashion across the fracture site. An 8 hole one third semitubular plate was then contoured to the lateral aspect of the fibula. Was fixed proximally with four 3.5 cortical screws and then distally with a single cancellous screw and a single locking screw. I then brought x-ray in. The fracture was anatomically aligned. I stressed the mortise and there was no gapping. Attention drawn toward closing. Wounds irrigated coconuts of normal saline. I did inject locally with 30 cc of half percent Marcaine with epinephrine. The fascia over the lateral plate was then closed with 0 Vicryl suture in a [id number] fashion for the tourniquet was then let down for tourniquet time 42 minutes. Hemostasis surgeries electrocautery. We once again irrigated. The subcutaneous tissues of both wounds were then closed with 2-0 Vicryl suture in a buried interrupted fashion skin was closed with 3-0 nylon suture in a simple fashion. Leg was then cleaned and dried and a sterile dressing was Xeroform, 4 x 4's, sterile cast padding and a well-padded posterior and stirrup splint were applied. The patient then brought out of general esthesia and transferred to the recovery in stable condition. The patient tolerated procedure well and there were no complications. Sonny Morelnad, my physician driller's assistant, was present for the entire procedure. His assistance was required for proper patient positioning, prepping and draping, surgical exposure, retraction, placement of the hardware, perform the technical details of the operation, closure of the incision site, and placement of postoperative sterile dressing and splint. I attest to the content of the Intraoperative Record and any orders documented therein. Any exceptions are noted below.
[2024-09-16] MEDS ORDERED: NALOXONE HCL 0.4 MG/1 ML VIAL/CARP IV PRN (14:20)
[2024-09-16] MEDS ORDERED: METOCLOPRAMIDE HCL INJ 5 MG/ML 2 ML VIAL IV PRN ×2 (14:20→17:15)
[2024-09-16] MEDS ORDERED: HYDROmorphone INJ 0.5 MG/0.5 ML SYR IV PRN (14:20)
[2024-09-16] MEDS ORDERED: MAGNESIUM HYDROXIDE SUSP 30 ML UDC PO PRN (14:20)
[2024-09-16] MEDS ORDERED: bisacodyL 10 MG SUPP PR PRN (14:20)
[2024-09-16] MEDS ORDERED: ALUMINUM/MAGNESIUM SUSP 30 ML UDC PO PRN (14:20)
[2024-09-16] MEDS: SODIUM CHLORIDE 0.9% 1,000 ML IV SCH (14:29)
[2024-09-16] MEDS: ATORVASTATIN 20 MG TAB PO SCH (14:30)
[2024-09-16] MEDS: PANTOprazole 40 MG TAB PO SCH (14:30)
[2024-09-16] MEDS: CHOLECALCIFEROL 25 MCG (1000 UNITS) TAB PO SCH (14:30)
[2024-09-16] MEDS: KETOROLAC TROMETHAMINE 15 MG/ML VIAL IV SCH (14:32)
[2024-09-16] MEDS: ACETAMINOPHEN 500 MG TAB PO SCH (14:32)
--- NOTE | 2024-09-16 14:46 | Anesthesiology Progress Note ---
Date of Service September 16, 2024 Anesthesia Post Procedure Vital Signs Vital Signs: Temp Pulse Pulse Pulse Resp BP BP 09/16/24 14:22 37.3 C 77 17 148/67 H 09/16/24 14:05 36.8 C 74 20 134/65 09/16/24 13:55 73 21 163/59 H 09/16/24 13:45 75 21 162/54 H 09/16/24 13:35 36.6 C 76 18 161/55 H 09/16/24 08:10 36.8 C 70 16 147/73 H 09/15/24 20:23 36.5 C 68 20 112/63 09/15/24 19:33 70 24 102/54 L 09/15/24 18:00 67 17 117/53 L 09/15/24 17:18 64 09/15/24 17:00 72 22 138/60 09/15/24 17:00 62 17 138/60 09/15/24 16:45 63 20 09/15/24 16:31 150/56 H 09/15/24 16:24 65 23 09/15/24 16:09 64 23 09/15/24 16:01 132/51 L 09/15/24 15:51 63 18 09/15/24 15:31 147/51 H 09/15/24 15:31 147/51 H 09/15/24 15:30 63 25 H 09/15/24 15:06 62 23 09/15/24 15:00 112/60 09/15/24 15:00 112/60 09/15/24 15:00 112/60 09/15/24 14:54 60 23 Pulse Ox O2 Del Method O2 Flow Rate 09/16/24 14:22 100 Nasal Cannula 2 09/16/24 14:05 98 Nasal Cannula 2 09/16/24 13:55 98 Nasal Cannula 2 09/16/24 13:45 98 Oxymask 6 09/16/24 13:35 97 Oxymask 6 09/16/24 08:10 94 Room Air 09/15/24 20:23 95 Room Air 09/15/24 19:33 92 09/15/24 18:00 98 09/15/24 17:18 09/15/24 17:00 96 09/15/24 17:00 96 09/15/24 16:45 97 09/15/24 16:31 09/15/24 16:24 96 09/15/24 16:09 95 09/15/24 16:01 09/15/24 15:51 94 09/15/24 15:31 09/15/24 15:31 09/15/24 15:30 95 09/15/24 15:06 96 09/15/24 15:00 09/15/24 15:00 09/15/24 15:00 09/15/24 14:54 97 Pain Intensity Left Ankle: Pain Intensity: 7 Transfer of Care Handoff Completed per policy Notes Mental Status: alert / awake / arousable and participated in evaluation Patient Amnestic to Procedure: Yes Nausea / Vomiting: adequately controlled Pain: adequately controlled Airway Patency, RR, SpO2: stable & adequate BP & HR: stable & adequate Hydration State: stable & adequate Anesthetic Complications: no major complications apparent
--- NOTE | 2024-09-16 14:58 | Communication Note ---
Date of Service: September 16, 2024 Reviewed postop EKG tracings and they are unchanged from previous. Remains asymptomatic
[2024-09-16] MEDS: ASCORBIC ACID 500 MG TAB PO SCH (17:23)
[2024-09-16] MEDS: ceFAZolin 1000MG 1,000 MG/7.5 ML SYR IV SCH (20:04)
[2024-09-16] MEDS: DOCUSATE SODIUM 100 MG CAP PO SCH (20:04)
[2024-09-16] MEDS: SENNA 8.6 MG TAB PO SCH (20:04)
[2024-09-17] MEDS: CLOPIDOGREL BISULFATE 75 MG TAB PO SCH (07:44)
[2024-09-17] MEDS: POLYETHYLENE (MIRALAX) 17 GM PACK PO SCH (07:44)
[2024-09-17] MEDS: MULTIVITAMIN TAB PO SCH (07:44)
--- NOTE | 2024-09-17 09:14 | Orthopedic Progress Note ---
Date of Service September 17, 2024 Assessment & Plan (1) Left trimalleolar fracture: Seen by Dr. Shaikh today. PT/OT nonweightbearing LLE Keep leg elevated to reduce swelling. Heel precautions DVT prophylaxis: on plavix okay for discharge from orthopedic standpoint Subjective . 89 year old patient POD 1 from left ankle ORIF. Not really having any pain at rest. About to start therapy Review of Systems All systems reviewed & are unremarkable except as noted in HPI & below. Physical Exam .alert, NAD. VSS Left leg: Splint/dressing clean, dry, intact. Able to move toes appropriately Results & Data Results & Data Laboratory Results . Diagnostic Findings . PG Care Time/CCT Total # of Minutes Spent Total Time Spent with Patient: Total time spent is greater than 50% in coordination of care (as documented) at patient's floor/unit and/or counseling patient: Coding Level of Care Code 14140 Post Operative Follow-Up Diagnoses Left trimalleolar fracture S82.852A Encounter type: initial encounter Fracture type: closed (1) Left trimalleolar fracture Encounter type: initial encounter Fracture type: closed Qualified Code(s): S82.852A - Displaced trimalleolar fracture of left lower leg, initial encounter for closed fracture
--- NOTE | 2024-09-17 09:37 | Electrocardiogram Report ---
Test Reason : Blood Pressure : */* mmHG Vent. Rate : 74 BPM Atrial Rate : 74 BPM P-R Int : 150 ms QRS Dur : 68 ms QT Int : 410 ms P-R-T Axes : 44 8 149 degrees QTcB Int : 455 ms Normal sinus rhythm Left ventricular hypertrophy with repolarization abnormality Diffuse ST-T abnormality Abnormal ECG When compared with ECG of 15-Sep-2024 12:28, No significant change was found Confirmed by Margaret Oscar ([id number]) on 09/17/2024 9:36:27 AM Referred By: REFERRED SELF Confirmed By: Margaret Oscar
--- NOTE | 2024-09-17 15:55 | Hospitalist Progress Note ---
Date of Service September 17, 2024 Assessment & Plan (1) Left trimalleolar fracture: (2) Osteoporosis: (3) Hypothyroidism: (4) Pre-diabetes: Plan 89-year-old admitted with left trimalleolar ankle fracture following a mechanical fall #Acute left trimalleolar ankle fracture/osteoporosis/vitamin D deficiency repaired by Dr. Shaikh 09/16 Pain regimen with scheduled Tylenol 1000 mg IV Q8H, oxycodone 5 mg Q4H PRN moderate pain, morphine 2 mg IV Q4H PRN severe pain Continue vitamin D supplementation. Vitamin D level normal at 36 # abnormal EKG, echo with LVH and moderate aortic insufficiency - not currently hypertensive but past history of hypertension #Hypothyroidism Most recent TSH 2.5 in February 2024 Continue Synthroid 75 mcg daily #Prediabetes A1c 6.1% blood glucose check was elevated at 190 yesterday, ordered ACHS glucose checks and as needed short acting insulin #Hypercholesterolemia Continue atorvastatin 20 mg daily #GERD Protonix 40 mg daily while hospitalized Maalox available as needed #Remote CVA Plavix continued #Dementia - longstanding pattern of short term memory loss. At baseline per her . Delirium precautions, avoid sedating meds as much as possible PT/OT ordered, NWB RLE VTE PPx: on Plavix, added twice daily aspirin CODE STATUS: DNR/DNI Admission and Anticipated Discharge Date Admission Date: September 15, 2024 Subjective doing okay she is very forgetful also does not realize that she had surgery on her ankle, she is not currently having significant ankle pain, her is in the room reports she is doing pretty well and is at her mental status baseline Physical Exam Physical Exam: Last 24h vitals reviewed GEN: awake lying in bed her is next to her HEENT: pupils equal, sclerae anicteric, moist MM RESP: normal WOB, CTAB CV: reg no mrg ABD: soft/nt/nd +BT : no neumann SKIN: warm and dry, no generalized rashes EXT: LLE in splint, toes wwp NEURO: AOx self and hospital but does not recall why she is here not oriented to situation, very poor short-term memory. Face symmetric, speech normal, moves 4 ext spontaneously and equally Results & Data Results & Data Vital Signs (Past 12 Hours) Vital Signs Temp Pulse Resp BP Pulse Ox O2 Del Method 09/17/24 15:41 36.7 C 65 16 146/66 H 97 Room Air 09/17/24 11:06 36.7 C 61 16 150/67 H 95 Room Air 09/17/24 07:41 36.8 C 64 16 129/57 L 97 Room Air 09/17/24 04:00 36.5 C 68 16 167/73 H 98 Room Air PG Care Time/CCT Total # of Minutes Spent Total Time Spent with Patient: Total time spent is greater than 50% in coordination of care (as documented) at patient's floor/unit and/or counseling patient: Coding Level of Care Code 94673 SUB INP/OBS CARE 2/35MIN Diagnoses Left trimalleolar fracture S82.852A Encounter type: initial encounter Fracture type: closed Osteoporosis M81.0 Hypothyroidism E03.9 Pre-diabetes R73.03 (1) Left trimalleolar fracture Encounter type: initial encounter Fracture type: closed Qualified Code(s): S82.852A - Displaced trimalleolar fracture of left lower leg, initial encounter for closed fracture
[2024-09-17] MEDS: ASPIRIN 81 MG ECTAB PO SCH (21:06)
--- NOTE | 2024-09-18 07:08 | Orthopedic Progress Note ---
Date of Service September 18, 2024 Assessment & Plan (1) Left trimalleolar fracture: Plan: 89-year-old female with postop day 2 from ORIF of left trimalar ankle fracture. Orthopedically she is doing well. Pain is controlled. Plan: Patient is splints clean dry and in place. She can mobilize as tolerated but she is nonweightbearing on this left leg for the first 2 weeks. The leave the Klumpp splint clean dry and in place. She is orthopedically okay for discharge anytime medically stable. DVT prophylaxis including Thiede teds, SCDs, back on her Plavix. Strictly nonweightbearing left leg. She needs orthopedic follow-up in 2 to 3 weeks. Admission and Anticipated Discharge Date Admission Date: September 15, 2024 Subjective 89-year-old female now postop day 2 from a ORIF of the left ankle fracture. She is doing pretty well this morning. Some pain but very manageable. No new complaints. Physical Exam Physical Exam: Physical nation was a pleasant elderly female. Lying bed looks comfortable. Examination of the left leg reveals the splint to be clean dry and in place. She can dorsiflex and plantarflex her toes appropriately. She is neurologically intact. Results & Data Vital Signs (Past 12 Hours) Vital Signs Temp Pulse Resp BP Pulse Ox O2 Del Method 09/17/24 22:19 36.8 C 69 18 175/68 H 98 Room Air (1) Left trimalleolar fracture Encounter type: initial encounter Fracture type: closed Qualified Code(s): S82.852A - Displaced trimalleolar fracture of left lower leg, initial encounter for closed fracture
--- NOTE | 2024-09-18 08:05 | Fluoroscopy Report ---
FL ankle LT min 3V RTN CLINICAL HISTORY: LT ORIF ANKLE COMPARISON STUDY: 09/15/2024 FLUOROSCOPY TIME: 4 seconds FLUOROSCOPY IMAGES: 3 EXPOSURE DOSE: 0.08 mGy FINDINGS: Fluoroscopy was provided for left ankle internal fixation. IMPRESSION: Intraoperative fluoroscopy. ACT 112: Negative or not required by law. Electronically signed by: Óscar Castro M.D. 09/18/2024 8:03 AM
[2024-09-18] MEDS ORDERED: oxyCODONE HCL IR 5 MG TAB (IMMEDIATE RELEASE) PO PRN (08:18)
[2024-09-18] MEDS: traMADol HCL 50 MG TABLET PO PRN (13:08)
--- NOTE | 2024-09-18 14:19 | Hospitalist Progress Note ---
Date of Service September 18, 2024 Assessment & Plan (1) Left trimalleolar fracture: (2) Osteoporosis: (3) Hypothyroidism: (4) Pre-diabetes: Plan 89-year-old admitted with left trimalleolar ankle fracture following a mechanical fall #Acute left trimalleolar ankle fracture/osteoporosis/vitamin D deficiency repaired by Dr. Shaikh 09/16 Pain regimen with scheduled Tylenol, tramadol or oxycodone 5 mg Q4H PRN Continue vitamin D supplementation. Vitamin D level normal at 36 Nonweightbearing LLE for 2 weeks, follow up with ortho in 2-3 weeks PT/OT recs reviewed - recommend rehab. Discussed with her and care coord # abnormal EKG, echo with LVH and moderate aortic insufficiency - not currently hypertensive but past history of hypertension #Hypothyroidism Most recent TSH 2.5 in February 2024 Continue Synthroid 75 mcg daily #Prediabetes A1c 6.1% blood glucose check was elevated at 190 postop, ordered ACHS glucose checks and as needed short acting insulin #Hypercholesterolemia Continue atorvastatin 20 mg daily #GERD Protonix 40 mg daily while hospitalized Maalox available as needed #Remote CVA Plavix continued #Dementia - longstanding pattern of short term memory loss. At baseline per her . Delirium precautions, avoid sedating meds as much as possible PT/OT ordered, NWB RLE VTE PPx: on Plavix, added twice daily aspirin CODE STATUS: DNR/DNI ready for discharge to SNF when arrangements in place Admission and Anticipated Discharge Date Admission Date: September 15, 2024 Subjective doing well no events overnight, no Neumann catheter eating fine no nausea or vomiting mental status is at baseline she denies any left lower extremity pain obtained additional history from her at bedside Physical Exam Physical Exam: Last 24h vitals reviewed GEN: awake and alert in bed exam unchanged 09/18 HEENT: pupils equal, sclerae anicteric, moist MM RESP: normal WOB, CTAB CV: reg no mrg ABD: soft/nt/nd +BT : no neumann SKIN: warm and dry, no generalized rashes EXT: LLE in splint, toes wwp NEURO: AOx self and hospital and only partially oriented to situation, very poor short-term memory. Face symmetric, speech normal, moves 4 ext spontaneously and equally psych: Calm and no agitation, normal affect Results & Data Results & Data Vital Signs (Past 12 Hours) Vital Signs Temp Pulse Resp BP BP Pulse Ox O2 Del Method 09/18/24 12:18 36.4 C L 67 18 149/72 H 95 Room Air 09/18/24 07:14 36.5 C 64 16 150/62 H 94 Room Air PG Care Time/CCT Total # of Minutes Spent Total Time Spent with Patient: Total time spent is greater than 50% in coordination of care (as documented) at patient's floor/unit and/or counseling patient: Coding Level of Care Code 74622 SUB INP/OBS CARE 2/35MIN Diagnoses Left trimalleolar fracture S82.852A Encounter type: initial encounter Fracture type: closed Osteoporosis M81.0 Hypothyroidism E03.9 Pre-diabetes R73.03 (1) Left trimalleolar fracture Encounter type: initial encounter Fracture type: closed Qualified Code(s): S82.852A - Displaced trimalleolar fracture of left lower leg, initial encounter for closed fracture
[2024-09-18 15:46] VITALS: RESP 16
--- NOTE | 2024-09-19 09:02 | Orthopedic Progress Note ---
Date of Service September 19, 2024 Assessment & Plan (1) Left trimalleolar fracture: Plan: 89-year-old female postop day 3 from a left ankle ORIF. Orthopedically she is doing well. Pain seems to be controlled. Just waiting for placement. Plan: 1. DVT prophylaxis including thigh-high teds, SCDs, and just back on her Plavix. 2. PT/OT. She is nonweightbearing on this left leg for the first 2 weeks. 3. Heel precautions. Need to keep all pressure off the heel to prevent ulcers. 4. Medical management as per the medicine service. 5. Disposition. She is orthopedically okay for discharge anytime medically stable. I need to see her back 2 to 3 weeks out from surgery date. Any orthopedic questions can be directly [phone]. Admission and Anticipated Discharge Date Admission Date: September 15, 2024 Subjective 89-year-old female now postop day 3 from ORIF of left ankle fracture. She seems pretty comfortable this morning. Denies any significant pain. No new complaints. Physical Exam Physical Exam: Examination of left ankle reveals the splint to be in place. There is no signs of any drainage. She can flex extend her toes appropriately. She got brisk refill. She is neurologically intact. Results & Data Vital Signs (Past 12 Hours) Vital Signs Temp Pulse Resp BP Pulse Ox O2 Del Method 09/19/24 07:33 36.6 C 59 L 16 136/74 94 Room Air
--- NOTE | 2024-09-19 12:53 | Hospitalist Progress Note ---
"Date of Service September 19, 2024 Assessment & Plan (1) Left trimalleolar fracture: (2) Osteoporosis: (3) Hypothyroidism: (4) Pre-diabetes: Plan 89-year-old female with past medical history of hypothyroidism, hypercholesterolemia, osteoporosis, prediabetes, prior CVA (on Plavix), GERD, v itamin D deficiency, and short-term memory loss, presents with mechanical fall resulting in acute mildly displaced left ankle trimalleolar fracture - fracture the medial malleolus, distal left fibula and probable additional acute fracture of the posterior distal left tibia. Admitted for repair, done by Dr. Shaikh on 09/16. #Acute left trimalleolar ankle fracture/osteoporosis/vitamin D deficiency Repaired by Dr. Shaikh 09/16. Nonweightbearing LLE for 2 weeks, follow up with ortho in 2-3 weeks from surgery date Pain regimen with scheduled Tylenol, tramadol or oxycodone 5 mg Q4H PRN - has needed minimal narcotics. Continue vitamin D supplementation. Vitamin D level normal at 36 PT/OT recs reviewed - recommend rehab. Family is now agreeable, referals placed # abnormal EKG | possibel demand ischemia Troponin peaked at 17.9 echo with LVH and moderate aortic insufficiency - not currently hypertensive but past history of hypertension #Hypothyroidism - Most recent TSH 2.5 in February 2024 Continue Synthroid 75 mcg daily #Prediabetes - A1c 6.1%. Diet controlled. glucose acceptable on BMP #Hypercholesterolemia- Continue atorvastatin 20 mg daily #GERD Protonix 40 mg daily while hospitalized Maalox available as needed #Remote CVA - Plavix continued #Dementia - longstanding pattern of short term memory loss. At baseline per her . Delirium precautions, avoid sedating meds as much as possible VTE PPx: Teds, SCDs, and Plavix per recommendation of orthopedics Dispo: continued inpatient stay, working on safe discharge plan Admission and Anticipated Discharge Date Admission Date: September 15, 2024 Subjective patient seen sitting up to chair - no family present at bedside oriented to person and place denies pain. says her appetite is good did discuss rehab - and she was agreeable Review of Systems Review of Systems: All systems reviewed & are unremarkable except as noted in Subjective Physical Exam Physical Exam: GEN: awake and alert sitting up in the chair HEENT: pupils equal, sclerae anicteric, moist MM RESP: normal WOB, CTAB CV: reg no mrg ABD: soft/nt/nd +BT : no neumann EXT: LLE in splint, toes wwp NEURO: AOx self and hospital and 2024, partially oreinted to situation. no focal deficits psych: Calm and no agitation, normal affect Results & Data Results & Data Vital Signs (Past 12 Hours) Vital Signs Temp Pulse Resp BP Pulse Ox O2 Del Method 09/19/24 07:33 97.9 F 59 L 16 136/74 94 Room Air PG Care Time/CCT Total # of Minutes Spent Total Time Spent with Patient: Total time spent is greater than 50% in coordination of care (as documented) at patient's floor/unit and/or counseling patient: Coding Level of Care Code 95720 SUB INP/OBS CARE 06/10MIN Diagnoses Left trimalleolar fracture S82.852A Encounter type: initial encounter Fracture type: closed Osteoporosis M81.0 Hypothyroidism E03.9 Pre-diabetes R73.03 (1) Left trimalleolar fracture Encounter type: initial encounter Fracture type: closed Qualified Code(s): S82.852A - Displaced trimalleolar fracture of left lower leg, initial encounter for closed fracture"
[2024-09-20 07:18] VITALS: BP 152/73; PULSE 66; TEMP 97.7; O2SAT 94
--- NOTE | 2024-09-20 08:42 | Discharge Summary ---
"Discharge Summary Date of Service September 20, 2024 Principal Dx & Hospital Course #1 = Principal Diagnosis (1) Left trimalleolar fracture: (2) Osteoporosis: (3) Hypothyroidism: (4) Pre-diabetes: Plan #Acute left trimalleolar ankle fracture/osteoporosis/vitamin D deficiency 89-year-old female with past medical history of hypothyroidism, hypercholesterolemia, osteoporosis, prediabetes, prior CVA (on Plavix), GERD, vitamin D deficiency, and short-term memory loss, presents with mechanical fall resulting in acute mildly displaced left ankle trimalleolar fracture - fracture the medial malleolus, distal left fibula and probable additional acute fracture of the posterior distal left tibia. Admitted for repair, done by Dr. Shaikh on 09/16. Nonweightbearing LLE for 2 weeks, follow up with ortho in 2-3 weeks from surgery date. Continues on Vit D supplementation. Pain control with scheduled Tylenol and minimal prn tramadol needs. TEDs/Plavix for DVT prevention per ortho. Evaluated by PT/OT - rec rehab, she will be going to [facility] for this. # abnormal EKG | possibel demand ischemia - Troponin peaked at 17.9 echo with LVH and moderate aortic insufficiency #Hypothyroidism -Continue Synthroid 75 mcg daily #Prediabetes - A1c 6.1%. Diet controlled. #Hypercholesterolemia- Continue atorvastatin 20 mg daily #Remote CVA - Plavix continued #Dementia - longstanding pattern of short term memory loss. At baseline per her . Dispo: discharge to rehab today Notes For Next Care Provider ortho f/u 2-3 weeks from OR date (09/16) Admission HPI Per Admitting Provider Demetra is a pleasant 89-year-old female with past medical history of hypothyroidism, hypercholesterolemia, osteoporosis, prediabetes, prior CVA (on Plavix and baby Aspirin), GERD, vitamin D deficiency, and short-term memory loss. She presented to the ED via EMS with left ankle pain after experiencing a fall at home 2 days prior to presenting to the ED. She denied head strike or loss of consciousness during this fall. She has had ongoing left foot/ankle pain since the fall and has not been able to ambulate due to pain with weightbearing. She denies any paresthesias in her right lower extremity. Her pain is well-controlled at this time after receiving 2 mg IV morphine in the ED. Vital signs on admission notes slightly elevated BP at 142/62, otherwise within normal limits and stable. Labs on admission overall unremarkable with stable WBC, hemoglobin, platelets, electrolytes. Serum glucose elevated at 140, T. bili slightly elevated at 1.3. Imaging on admission revealed acute mildly displaced left ankle trimalleolar fracture - fracture the medial malleolus, distal left fibula and probable additional acute fracture of the posterior distal left tibia. There is left ankle soft tissue swelling. Mild medial ankle mortise widening is present. No proximal left tibial or fibular fracture noted. She did not take any medications on day of admission. does report she takes aspirin 81 mg daily (not included on med list). No recent medication changes. at bedside to provide additional history as patient has some short-term memory loss at baseline. Discussed CODE STATUS with patient and , patient wishes to be DNR/DNI. Discharge Exam alert and orented to self and place breathing unlabored well perfused wiggles toes bilaterally Discharge Plan Discharge Items Patient Disposition: Transfer [facility] Reason For Visit: LEFT ANKLE TRIMALLEOLAR FRACTURE Discharge Diagnosis: Left ankle fracture Condition on Discharge: Fair Activity: As commented below Activity Comment: work with therapy to get stronger Weightbearing: Left non-weightbearing Non-emergency contact: Primary Care Provider and Surgeon Call non-emergency contact if: you have any medication questions, your symptoms worsen, your pain is not controlled and your temperature is above 101 Follow-up/Referrals: Edgar Rodriguez MD [Primary Care Provider] - (follow up after discharge from [facility] ) Keon Shaikh MD [Physician] - (follow up 2-3 weeks from 09/16 ) Diet: Regular Addtl Attending Provider Instructions: Ms. Robertson, Guillermo were hospitalized after a fall resulting in an ankle fracture. This was repaired in the OR by Dr. Shaikh on 09/16. You are not be nonweight bearing to the left leg for the first two weeks. Be sure to keep pressure off your heels. You are on Plavix for DVT prophylaxis and will need to see Dr. Shaikh in follow up 2-3 weeks after your srugery date. Their number is listed above. Pain control: scheduled tylenol and as needed tramadol. Miralax added daily for bowels Keep your splint clean and dry You were started on a multivitamin. Continue Vit D supplementation. No changes to your home medication Take care! Pending Studies at Discharge: No Stand-Alone Forms: [facility] Sk[facility] Items Patient informed of condition?: Yes DNR: Yes Discharge Level of Care: Skilled Communicable Disease: No Discharge Prognosis: Stable Lines: None Urinary Catheter: No Medications and DC Order Prescriptions: New acetaminophen [Tylenol Extra Strength] 500 mg Tablet 1,000 mg PO Q8 Qty: 30 0RF polyethylene glycol 3350 [Miralax] 17 gram Powder In Packet 17 g PO DAILY Qty: 14 0RF tramadol 50 mg Tablet 50 mg PO Q6H PRN (Reason: pain) Qty: 3 0RF cholecalciferol (vitamin D3) 25 mcg (1,000 unit) Capsule 50 mcg PO DAILY Qty: 30 0RF multivitamin with folic acid [Daily-Giselle (with folic acid)] 400 mcg Tablet 1 tab PO QAM Qty: 30 0RF Continued clopidogrel 75 mg tablet 75 mg PO DAILY Qty: 90 3RF levothyroxine [Synthroid] 75 mcg tablet 75 mcg PO DAILY Qty: 90 3RF atorvastatin 20 mg tablet 20 mg PO DAILY Qty: 90 3RF Discharge Orders: Discharge Order (Routine); Ordered 09/20/24 Ordered By: Zara Russo/Other Patient Handouts: Ankle Fx ORIF Surg Admission Data Admit Date/Time: 09/15/24 13:48 Attending Provider: Unruly Talley Admit Provider: Ilsa Gusman Primary Care Provider: Edgar Rodriguez Other Providers: Freddy Le; Keon Shaikh; Irma Patel [facility]; IRB Approved Study,[facility] Hospital Stay Data Consultations 09/15/24 13:16 ED Decision to Admit Stat 09/15/24 13:48 Consult Orthopedic Surgery Stat Procedures Performed Operation Date: 09/16/24 07:30 Actual Procedures p Left Ankle Open Reduction Internal Fixation(Left) - Keon Shaikh MD Diagnostic Imagining Performed \\ Ankle X-Ray 09/15/24 12:23 XR ankle LT min 3V routine CLINICAL HISTORY: Left ankle pain. COMPARISON: None FINDINGS: Left ankle soft tissue swelling is present. There is an acute oblique mildly displaced distal left fibular fracture. Fracture is displaced 4 mm. Fracture extends from the level the tibiotalar joint 3 cm proximally. There is also an acute mildly displaced fracture of the medial malleolus. There is mild medial ankle mortise widening on oblique projection. There is a probable acute mildly displaced posterior distal left tibial fracture. A lucency within the posterior calcaneus is likely artifactual. IMPRESSION: 1. Acute mildly displaced left ankle trimalleolar fracture, as described above. Mild medial ankle mortise widening. 2. Left ankle soft tissue swelling. ACT 112: Negative or not required by law. Electronically signed by: Collin Sweeney M.D. 09/15/2024 1:00 PM Foot X-Ray 09/15/24 12:23 XR foot LT min 3V routine HISTORY: 89 years-old Female l foot pain acute left foot pain COMPARISON: Ankle, tibia and fibula radiographs of same day TECHNIQUE: 3 views of the left foot FINDINGS: Moderate soft tissue swelling of the foot and ankle. Acute trimalleolar ankle fracture with displacement. Demineralized appearance of the bone. No additional acute fracture or dislocation identified. Midfoot alignment appears anatomic. IMPRESSION: 1. Soft tissue swelling of the foot without acute fracture or dislocation. 2. Acute trimalleolar fractures of the ankle are better seen and described on the same day ankle films. ACT 112: Negative or not required by law. The above report was generated using voice recognition software. It may contain grammatical, syntax or spelling errors. Electronically signed by: Gurjit Morley M.D. 09/15/2024 12:50 PM Tibia/Fibula X-Ray 09/15/24 12:23 XR tibia fibula LT 2V CLINICAL HISTORY: Left leg pain. COMPARISON: None FINDINGS: No proximal left tibial or fibular fractures are identified. There is an acute mildly displaced fracture the medial malleolus, distal left fibula and probable additional acute fracture of the posterior distal left tibia. There is left ankle soft tissue swelling. Mild medial ankle mortise widening is present. IMPRESSION: 1. Acute mildly displaced left ankle trimalleolar fracture. Mild medial ankle mortise widening. 2. No proximal left tibial or fibular fracture. ACT 112: Negative or not required by law. Electronically signed by: Collin Sweeney M.D. 09/15/2024 1:02 PM Ankle X-Ray 09/16/24 07:00 FL ankle LT min 3V RTN CLINICAL HISTORY: LT ORIF ANKLE COMPARISON STUDY: 09/15/2024 FLUOROSCOPY TIME: 4 seconds FLUOROSCOPY IMAGES: 3 EXPOSURE DOSE: 0.08 mGy FINDINGS: Fluoroscopy was provided for left ankle internal fixation. IMPRESSION: Intraoperative fluoroscopy. ACT 112: Negative or not required by law. Electronically signed by: Óscar Castro M.D. 09/18/2024 8:03 AM Pending Results Patient Have Any Pending Studies at Discharge: No Discharge Instructions Given to Patient (Per Discharging Provider) Ms. Robertson, You were hospitalized after a fall resulting in an ankle fracture. This was repaired in the OR by Dr. Shaikh on 09/16. You are not be nonweight bearing to the left leg for the first two weeks. Be sure to keep pressure off your heels. You are on Plavix for DVT prophylaxis and will need to see Dr. Shaikh in follow up 2-3 weeks after your srugery date. Their number is listed above. Pain control: scheduled tylenol and as needed tramadol. Miralax added daily for bowels Keep your splint clean and dry You were started on a multivitamin. Continue Vit D supplementation. No changes to your home medication Take care! Total Time Total Time Spent Total Time Spent (In Minutes): Time spent day of discharge 25 minutes including direct patient care, medication reconciliation, documentation, review of labs and images, and coordination of care. Coding Level of Care Code 80699 IN/OBS DISCH 30 MIN/LESS Diagnoses Left trimalleolar fracture S82.852A Encounter type: initial encounter Fracture type: closed Osteoporosis M81.0 Hypothyroidism E03.9 Pre-diabetes R73.03"
== END 2024-09-20 10:00 | DRG 493 ==
LOC: ED 12:21 → SUATTDRO 13:48 → EDINP 13:48 → 3E 16:48